=== PATIENT | male | born 1990 | race Two or more races ===

== ENCOUNTER 2019-08-08 17:47 | Outpatient (CLI) | payer BC, OTHER ==
[~2019-08-08 17:47] MED LIST: DENIES
== END 2019-08-08 23:59 | disposition home or self-care (01) ==
LOC: RAD 17:47
PROVIDERS: ATTEND Family Medicine
DX: K04.7 Periapical abscess without sinus (principal)
CPT/HCPCS: 76536

== ENCOUNTER 2019-08-10 09:29 | Outpatient (CLI) | payer OTHER, MEDICAID ==
[2019-08-10] MEDS ORDERED: OMNIPAQUE 350 MG/ML, 100ML BOTTLE ONE (15:00)
== END 2019-08-10 23:59 | disposition home or self-care (01) ==
LOC: RAD 09:29
PROVIDERS: ATTEND Physician Assistant
DX: K04.7 Periapical abscess without sinus (principal); M27.49 Other cysts of jaw
CPT/HCPCS: 70491; Q9967